=== PATIENT | male | born 1960 | race Caucasian/White ===

== ENCOUNTER 2023-06-30 11:28 | Emergency (ER) | payer OTHER, SELFPAY ==
[2023-06-30 11:28] VITALS: BMI 29.3
[2023-06-30 11:34] VITALS: BP 124/60
--- NOTE | 2023-06-30 12:03 | ED.GENMED ---
History of Present Illness
General
Chief Complaint: Back Pain
Time Seen by Provider: 06/30/23 11:36
Travel History
Have you had any contact with someone who has COVID-19?: No
Do you have any symptoms of coronavirus? Fever > 100 degrees, chills, cough, shortness of breath, sore throat, loss of taste or smell, muscle aches, or headache?: No
History of Present Illness
History of Present Illness:
63-year-old male presents to the emergency department for evaluation of right low back/upper gluteal pain ongoing for the past 6 days. He notes that he recently flew home from a trip to [place], and the following day went to the gym and exercise and
the pain began at that point. Has been gradually worsening throughout the week, was primarily concerned because this morning he was not able to get himself out of bed without assistance. Pain does not radiate down the right leg. He has no
symptoms of urine retention or urinary incontinence. Denies any associated fevers or chills. No hematuria. Has taken NSAIDs and took 1 dose of tizanidine today with modest improvement
Review of Systems
Review of Systems
Allergies reviewed?: Yes
All Other Systems: ROS reviewed and negative except as documented in HPI and ROS
Phy Exam
Physical Exam
Physical Exam:
GEN: Well appearing, NAD, WDWN
HEENT: Oral mucosa moist, no scleral icterus
Cardiac: Regular rate
Lung: No respiratory distress, no tachypnea
MSK: No gross deformity or injuries. No midline lumbar spine tenderness. Mild tenderness elicited to the right superior gluteal region. Right hip range of motion is normal in all more, passive range of motion elicits no pain. Unable to
maintain a prolonged straight leg raise secondary to pain. EHL strength 5 out of 5 bilaterally, patellar reflexes 2+ bilaterally
Skin: Good color, no pallor or jaundice, no rashes
Neuro: AO x3, moves all extremities freely
Psych: Calm, cooperative
Course
Orders/Labs/Results
Orders:
Orders
06/30/23 11:52
Bladder Scan- Treatment ONCE
Comment: POST VOID RESIDUAL
Acetaminophen [Tylenol] 1,000 mg PO NOW STA
Ketorolac [Toradol] 30 mg IM NOW STA
Lidocaine [Lidocaine 4% Patch] 1 patch TOPICAL NOW STA
06/30/23 12:53
Urinalysis Reflex To Culture Urgent
Date Specimen was Collected: 06/30/23
Time Specimen was Collected: 12:37
Vital Signs
Initial and Last Documented VS:
Initial Vital Signs
Temp
98.2 F
06/30/23 11:28
Last Documented Vital Signs
Temp Pulse Resp BP Pulse Ox
98 F 70 18 121/70 98
06/30/23 13:45 06/30/23 13:45 06/30/23 13:45 06/30/23 13:45 06/30/23 13:45
MDM/Problems Addressed
MDM/Problems Addressed:
Patient's symptoms are consistent with lumbosacral musculoskeletal strain. He has no lower extremity radiculopathy or paresthesias concerning for disc herniation. He did have modest improvement in pain with measures given in the emergency
department and was able to ambulate under his own power. Will discharge on a course of NSAIDs, small prescription of opiates for pain. Recommend close primary care follow-up
*Critical Care Note
Total Time (30-74mins, 75-104mins- exclusive of procedures): Not Applicable
ED Attending Note
-
Portions of this chart may have been created with voice recognition software.� Occasional wrong word or��sound alike� substitutions may have occurred due to the inherent limitations of voice recognition software.
Discharge Plan
Departure
Patient Disposition: Home (Routine Discharge)
Date of Disposition: 06/30/23
Time of Disposition: 13:28
Patient with high blood pressure during this ER visit?: No
Discharge Problem:
Acute lumbar myofascial strain
Instructions: Low Back Pain (DC)
Prescriptions:
New
celecoxib [Celebrex] 200 mg capsule
200 mg PO BID 10 Days Qty: 20 0RF
oxycodone 5 mg tablet
5 mg PO Q8H PRN (Reason: Pain) Qty: 12 0RF
lidocaine 5 % adhesive patch,medicated
1 patch topical DAILY Qty: 15 0RF
Referrals:
UNKNOWN - PT DOES,NOT KNOW [Family Provider] -
Activity Restrictions/Additional Instructions:
You may take your next dose of celebrex around 6pm
Take 1000mg of Tylenol every 6-8 hours
Oxycodone should be used ONLY for severe pain
Follow up with your primary doctor this week to discuss physical therapy
Interventions
Interventions:
*Risk Screen - Suicide Last Done: 06/30/23 11:28
*General Assessment Last Done: 06/30/23 13:29
*Neglect/Abuse Screening Last Done: 06/30/23 11:28
ED- Fall Risk Assessment Last Done: 06/30/23 11:28
*ED COVID-19 Vaccine History Last Done: 06/30/23 13:29
*Nursing Disposition Last Done: 06/30/23 13:45
ED-Musculoskeletal Assessment Last Done: 06/30/23 13:29
Discharge Date and Time
Discharge Date/Time: 06/30/23 13:46
Print Language: [place]
[2023-06-30] MEDS: LIDOCAINE 4% PATCH 1 PATCH TOPICAL (12:18)
[2023-06-30] MEDS: TORADOL 30 MG IM (12:18)
[2023-06-30] MEDS: TYLENOL 1000 MG PO (12:18)
[2023-06-30 13:04] LABS: Urine Albumin Negative (Neg - Trace); Urine Bilirubin Negative (Negative); Urine Character Clear (Clear); Urine Color Yellow; Urine Glucose Negative (Negative); Urine Ketone Negative (Negative); Urine Leukocyte Negative (Negative); Urine Nitrite Negative (Negative); Urine Occult Blood Negative (Negative); Urine Urobilinogen Negative (Neg - 1+)
[2023-06-30 13:45] VITALS: BP 121/70
== END 2023-06-30 13:46 | disposition home or self-care (01) ==
LOC: EMR 11:28
PROVIDERS: Physician Assistant; EMERGENCY PHYSICIAN Emergency Medicine
DX: S39.012A Strain of muscle, fascia and tendon of lower back, initial encounter (principal); X58.XXXA Exposure to other specified factors, initial encounter
CPT/HCPCS: 99282; 96372; 81003